=== PATIENT | female | born 1945 | race Caucasian/White ===

== ENCOUNTER 2020-10-16 19:37 | Observation (INO) | payer BC, SELFPAY ==
[~2020-10-16] VITALS: Ht 165.1 cm; Wt 82.2 kg
[~2020-10-16 19:37] MED LIST: CARV3.1246 PO; CIPR-260 PO; PANTOPRAZOLE; TRIA1CAP6 PO
[2020-10-16 19:40] VITALS: BP_SYST 185
--- NOTE | 2020-10-16 19:40 | NUR ---
PT TO REMAIN IN THE ER LOBBY UNTIL ER BED BECOMES AVAILABLE. EKG DONE ON ARRIVAL.
--- NOTE | 2020-10-16 22:14 | NUR ---
PT TO BED 7 FOR EVALUATION. PT GOWNED AND ATTACHED TO CUSHION FILLER.
--- NOTE | 2020-10-16 22:30 | NUR ---
Pt walked in from home c/o HTN, syncopal episode last tuesday. Pt reports taking an extra BP med today approx 4 hours ago.
--- NOTE | 2020-10-16 22:40 | NUR ---
# 20 gauge angiocath placed to LAC. Use of asceptic technique. Opsite placed over site. Blood return noted. Blood for lab drawn from site. Flushed with 10 cc of normal saline. No evidence of infiltration noted. Patient tolerated well.
[2020-10-16] MEDS ORDERED: ASPIRIN 81 MG TAB.CHEW PO ONE (22:45)
[2020-10-16 23:02] LABS: BASOPHILS % (AUTO) 0.5 % (0.0-2.0); EOSINOPHILS # (AUTO) 0.1 K/uL (0.0-0.4); EOSINOPHILS % (AUTO) 2.1 % (0.0-4.0); HEMATOCRIT 37.8 % (36-48); HEMOGLOBIN 13.1 g/dL (12.0-16.0); LYMPHOCYTES # (AUTO) 1.4 K/uL (1.0-5.5); LYMPHOCYTES % (AUTO) 19.5 % (20.5-51.5); MEAN CORPUSCULAR HEMOGLOBIN 35 pg (27-31); MEAN CORPUSCULAR HGB CONC 35 % (32-36); MEAN CORPUSCULAR VOLUME 100 fL (79.0-98.0); MONOCYTES # (AUTO) 0.4 K/uL (0.0-1.0); MONOCYTES % (AUTO) 5.5 % (1.7-9.3); NEUTROPHILS # (AUTO) 5.1 K/uL (1.8-7.7); NEUTROPHILS % (AUTO) 72.4 % (40.0-70.0); PLATELET COUNT (AUTO) 187 K/uL (130-430); RED BLOOD CELL COUNT(AUTO) 3.79 MIL/uL (4.2-6.2); RED CELL DISTRIBUTION WIDTH 13.4 % (9.0-15.0); WHITE BLOOD COUNT (AUTO) 7.1 K/uL (4.8-10.8)
--- NOTE | 2020-10-16 23:08 | NUR ---
DR. LANZA AT BEDSIDE FOR EVALUATION.
[2020-10-16 23:16] LABS: ANION GAP 9 (5-15); CHLORIDE 101 mmol/L (98-107); CREATININE 0.77 mg/dL (0.55-1.30); GLUCOSE 108 mg/dL (70-99); POTASSIUM 4.1 mmol/L (3.5-5.1); SODIUM SERUM 136 mmol/L (136-145); UREA NITROGEN, BLOOD 17 mg/dL (8-21)
[2020-10-16 23:21] LABS: ALANINE AMINOTRANSFERASE 30 U/L (12-78); ALBUMIN 3.6 g/dL (3.4-4.8); ASPARTATE AMINOTRANSFERASE 22 U/L (10-37); TOTAL BILIRUBIN 0.4 mg/dL (0.0-1.0)
--- NOTE | 2020-10-17 00:25 | NUR ---
Patient will be admitted to care of DR. YU. Admitted to TELE OBS unit. Belongings list completed. Complete and up to date summary report printed. SBAR report to be given at bedside with opportunity for questions.
--- NOTE | 2020-10-17 00:36 | NUR ---
Patient's code status is FULL CODE paperwork completed and placed in chart.
[2020-10-17] MEDS ORDERED: CEFU250T85 PO (00:44)
[2020-10-17] MEDS ORDERED: LISI-209 PO (00:44)
[2020-10-17] MEDS ORDERED: CARV3.1246 PO (00:44)
[2020-10-17] MEDS ORDERED: CITA10TA9 PO (00:44)
[2020-10-17] MEDS ORDERED: LORA-258 PO (00:47)
--- NOTE | 2020-10-17 00:47 | NUR ---
Medication reconciliation completed with information provided by PATIENT MEDICATION BOTTLES. Any prior medication reconciliation on file was reviewed and corrected.
--- NOTE | 2020-10-17 02:50 | NUR ---
Transfer to 119A via ACLS protocol. Licensed nurse present. IV present no signs or symptoms of infiltration.
--- NOTE | 2020-10-17 03:03 | NUR ---
Admission Note Received patient from ER with diagnosis of CHEST PAIN. Initial Plan of Care discussed-patient verbalized understanding. Oriented to room, call light, pain management and safety.
--- NOTE | 2020-10-17 03:44 | NUR ---
PAGED DR. YU AT THIS TIME FOR HIGH BLOOD PRESSURE, LOW HEART RATE High bp 190/80, heart rate 53. Awaiting call back.
[2020-10-17 03:46] VITALS: BP_SYST 190
--- NOTE | 2020-10-17 03:50 | NUR ---
DR. YU CALLED BACK REGARDING HIGH BP, LOW HR Orders clonidine 0.1mg PO ONCE also states if heart rate continues to be low: page dr. kaufman.
[2020-10-17] MEDS ORDERED: cloNIDine HCL 0.1 MG TABLET PO ONE (04:00)
[2020-10-17 04:54] VITALS: BP_SYST 114
--- NOTE | 2020-10-17 05:55 | NUR ---
CONSULTATION PAGED/CALLED Reason for Consultation: CHEST PAIN Person Who was Notified: CHRISTINA Consulting Physician: JEAN-PAUL [employer] Manager Specialty: Ordering Physician: Neelam YU
[2020-10-17] MEDS ORDERED: ONDANSETRON HCL 4 MG/2 ML VIAL IVP PRN (06:30)
[2020-10-17] MEDS ORDERED: ACETAMINOPHEN 325 MG TABLET PO PRN ×2 (06:30→07:30)
[2020-10-17] MEDS ORDERED: HYDROcodone/ACETAMIN 10-325 MG TAB PO PRN (06:30)
[2020-10-17] MEDS ORDERED: LORazepam 1 MG TABLET PO PRN (06:30)
[2020-10-17] MEDS ORDERED: NALOXONE HCL 0.4 MG/ML AMP (NARCAN) IVP PRN ×2 (06:30)
[2020-10-17] MEDS ORDERED: LORazepam 2 MG/ML VIAL IVP PRN (06:30)
[2020-10-17] MEDS ORDERED: HYDROcodone/ACETAMIN 5-325 MG TAB (NORCO/ VICODIN) PO PRN (06:30)
--- NOTE | 2020-10-17 07:20 | NUR ---
CLOSING NOTES Patient resting in bed - no s/s pain or distress noted. Respirations even and unlabored - head of bed elevated. IV site patent - no s/s redness, infection or infiltration. Bed locked and in lowest position. Call light within reach.
[2020-10-17 08:16] VITALS: BP_SYST 103
[2020-10-17 08:40] LABS: BASOPHILS % (AUTO) 0.6 % (0.0-2.0); EOSINOPHILS # (AUTO) 0.2 K/uL (0.0-0.4); EOSINOPHILS % (AUTO) 3.4 % (0.0-4.0); HEMATOCRIT 37.1 % (36-48); HEMOGLOBIN 12.5 g/dL (12.0-16.0); LYMPHOCYTES # (AUTO) 1.4 K/uL (1.0-5.5); LYMPHOCYTES % (AUTO) 23.3 % (20.5-51.5); MEAN CORPUSCULAR HEMOGLOBIN 34 pg (27-31); MEAN CORPUSCULAR HGB CONC 34 % (32-36); MEAN CORPUSCULAR VOLUME 101 fL (79.0-98.0); MONOCYTES # (AUTO) 0.5 K/uL (0.0-1.0); MONOCYTES % (AUTO) 7.8 % (1.7-9.3); NEUTROPHILS # (AUTO) 3.9 K/uL (1.8-7.7); NEUTROPHILS % (AUTO) 64.9 % (40.0-70.0); PLATELET COUNT (AUTO) 183 K/uL (130-430); RED BLOOD CELL COUNT(AUTO) 3.67 MIL/uL (4.2-6.2); RED CELL DISTRIBUTION WIDTH 13.5 % (9.0-15.0); WHITE BLOOD COUNT (AUTO) 6.1 K/uL (4.8-10.8)
[2020-10-17] MEDS ORDERED: TRIAMTERENE/HYDROCHLOROTHIAZID 1 CAP CAPSULE (DYAZIDE37.5/25) PO SCH (09:00)
[2020-10-17] MEDS ORDERED: CITALOPRAM HYDROBROMIDE 20 MG TABLET PO SCH (09:00)
[2020-10-17] MEDS ORDERED: CARVEDILOL 3.125 MG TABLET (COREG) PO SCH (09:00)
[2020-10-17] MEDS ORDERED: lisinopriL 20 MG TABLET PO SCH (09:00)
[2020-10-17 09:04] LABS: ALANINE AMINOTRANSFERASE 25 U/L (12-78); ALBUMIN 3.5 g/dL (3.4-4.8); ANION GAP 8 (5-15); ASPARTATE AMINOTRANSFERASE 19 U/L (10-37); CALCIUM 8.7 mg/dL (8.4-11.0); CHLORIDE 104 mmol/L (98-107); CREATININE 0.86 mg/dL (0.55-1.30); GLUCOSE 119 mg/dL (70-99); PHOSPHORUS 4.4 mg/dL (2.7-4.5); POTASSIUM 4.2 mmol/L (3.5-5.1); SODIUM SERUM 140 mmol/L (136-145); TOTAL BILIRUBIN 0.4 mg/dL (0.0-1.0); UREA NITROGEN, BLOOD 17 mg/dL (8-21)
--- NOTE | 2020-10-17 09:30 | NUR ---
dr hickey was here and seen / spoke with pt.
--- NOTE | 2020-10-17 13:44 | NUR ---
PAGED PAGED SULEMA MARSHALL AT [phone] SPOKE WITH FRANCESCO.
[2020-10-17 13:53] VITALS: BP_SYST 129
[2020-10-17] MEDS ORDERED: NORMAL SALINE 5 ML DISP.SYRIN IVF SCH (14:00)
--- NOTE | 2020-10-17 14:54 | NUR ---
LENS BLANK GAUGER WAS CALLED AGAIN TO GET CLEARANCE TO DISCHARGE HOME. SPOKE WITH MICHAEL.
[2020-10-17 15:09] VITALS: BP_SYST 129
--- NOTE | 2020-10-17 15:45 | NUR ---
D/C Patient Patient given medication reconciliation form and D/C instructions. Exit Care provided. Patient verbalized understanding. MD discussed with patient the results and treatment provided. Ambulatory with steady gait for discharge to home. Patient in stable condition, ID band removed. IV catheter removed, intact and dressing applied, no active bleeding. NO Rx given. Patient educated on pain management. All belongings sent with patient.
== END 2020-10-17 16:15 | disposition home or self-care (01) ==
LOC: SED 19:37 → STU 10-17 00:27
PROVIDERS: ADMIT Internal Medicine Hospice and Palliative Medicine; ATTEND Internal Medicine Hospice and Palliative Medicine
DX: I16.0 Hypertensive urgency (principal); Z20.822 Contact with and (suspected) exposure to COVID-19; R07.89 Other chest pain; I10 Essential (primary) hypertension; K21.9 Gastro-esophageal reflux disease without esophagitis; F41.8 Other specified anxiety disorders; Z90.710 Acquired absence of both cervix and uterus; Z88.0 Allergy status to penicillin; Z79.899 Other long term (current) drug therapy
CPT/HCPCS: 36415 ×2; 71045; 80053 ×2; 83735; 83880; 84100; 84484 ×2; 85025 ×2; 85379; 87426; 93005 ×2; 93306; 93971; 99285; G0378; 99284

== ENCOUNTER 2021-06-05 14:25 | Emergency (ER) | payer BC ==
[~2021-06-05] VITALS: Ht 162.6 cm; Wt 81.2 kg
[~2021-06-05 14:25] MED LIST changes: -CIPR-260 PO; +CITA10TA14 PO; +LISI-209 PO; +LORA-258 PO; -PANTOPRAZOLE
[2021-06-05 14:35] VITALS: BP_SYST 225
[2021-06-05 15:47] LABS: ANION GAP 7 (5-15); CHLORIDE 100 mmol/L (98-107); CREATININE 0.74 mg/dL (0.55-1.30); GLUCOSE 105 mg/dL (70-99); POTASSIUM 4.3 mmol/L (3.5-5.1); SODIUM SERUM 134 mmol/L (136-145); UREA NITROGEN, BLOOD 21 mg/dL (8-21)
[2021-06-05 15:51] LABS: BASOPHILS % (AUTO) 0.2 % (0.0-2.0); EOSINOPHILS # (AUTO) 0.2 K/uL (0.0-0.4); EOSINOPHILS % (AUTO) 1.6 % (0.0-4.0); HEMATOCRIT 38.1 % (36-48); HEMOGLOBIN 13.1 g/dL (12.0-16.0); LYMPHOCYTES # (AUTO) 0.8 K/uL (1.0-5.5); LYMPHOCYTES % (AUTO) 8.2 % (20.5-51.5); MEAN CORPUSCULAR HEMOGLOBIN 34 pg (27-31); MEAN CORPUSCULAR HGB CONC 34 % (32-36); MEAN CORPUSCULAR VOLUME 100 fL (79.0-98.0); MONOCYTES # (AUTO) 0.6 K/uL (0.0-1.0); MONOCYTES % (AUTO) 5.9 % (1.7-9.3); NEUTROPHILS # (AUTO) 8.5 K/uL (1.8-7.7); NEUTROPHILS % (AUTO) 84.1 % (40.0-70.0); PLATELET COUNT (AUTO) 189 K/uL (130-430); RED CELL DISTRIBUTION WIDTH 13.5 % (9.0-15.0); WHITE BLOOD COUNT (AUTO) 10.1 K/uL (4.8-10.8)
[2021-06-05 15:53] LABS: ALANINE AMINOTRANSFERASE 20 U/L (12-78); ALBUMIN 3.8 g/dL (3.4-4.8); ASPARTATE AMINOTRANSFERASE 19 U/L (10-37); LIPASE 144 U/L (73-393); TOTAL BILIRUBIN 0.2 mg/dL (0.0-1.0)
[2021-06-05 16:16] LABS: BILIRUBIN,URINE NEGATIVE (NEGATIVE); BLOOD, URINE 3+ (NEGATIVE); CLARITY/URINE CLOUDY (CLEAR); COLOR,URINE ORANGE (YELLOW); PROTEIN URINE 3+ (NEGATIVE)
[2021-06-05 16:19] LABS: GLUCOSE,URINE NEGATIVE (NEGATIVE); KETONES,URINE NEGATIVE (NEGATIVE); LEUKOCYTE ESTERASE ,URINE 2+ (NEGATIVE); NITRITE, URINE NEGATIVE (NEGATIVE); UROBILINOGEN,URINE >=8 (0.2-1.0)
[2021-06-05 16:22] LABS: RBC,URINE >100 /HPF (0-3)
[2021-06-05 16:23] LABS: BACTERIA,URINE FEW /HPF (None Seen); MUCUS,URINE None Seen /LPF (None Seen)
[2021-06-05] MEDS ORDERED: CEFI200T PO (17:12)
[2021-06-05 17:23] VITALS: BP_SYST 164
== END 2021-06-05 17:23 | disposition home or self-care (01) ==
LOC: SED 14:25
DX: N39.0 Urinary tract infection, site not specified (principal); R31.9 Hematuria, unspecified; I10 Essential (primary) hypertension; K21.9 Gastro-esophageal reflux disease without esophagitis; Z88.0 Allergy status to penicillin; Z90.710 Acquired absence of both cervix and uterus
CPT/HCPCS: 36415; 80053; 81000; 83690; 85025; 87086; 93005; 99285